=== PATIENT | male | born 1935 | race Caucasian/White ===

== ENCOUNTER → 2022-09-20 | Outpatient (REF) | payer MEDICARE, SELFPAY ==
[2022-09-20 10:03] LABS: Absolute Lymphocyte Count 1.46 X10^3/uL (0.83-4.51); Absolute Neutrophil Count 3.1 X10^3/uL (2.0-7.7); Basophil# 0.01 X10^3/uL; Basophil% 0.2 % (0-1); Eosinophil# 0.24 X10^3/uL; Eosinophils% 4.5 % (0-5); Hematocrit 34.9 % (40-54); Hemoglobin 11.5 g/dL (13.0-16.5); Lymphocyte # 1.46 X10^3/ul (0.83-4.51); Lymphocyte % 27.6 % (19-41); Mean Corpuscular Hgb 31.8 pg (27.0-32.0); Mean Corpuscular Volume 96.4 fL (80-94); Mean Platelet Vol. 9.7 fl (6.2-12.0); Monocyte# 0.44 X10^3/uL; Monocyte% 8.3 % (0-10); NRBC Flagged by Analyzer 0 % (0-5); Neutrophil # 3.13 X10^3/uL (2.7-7.7); Neutrophil % 59.2 % (47-70); Platelet Count 105 K/mm3 (150-450); RBC Distribution Width SD 45.8 fl (35.1-43.9); Red Blood Count 3.62 M/mm3 (4.6-6.2); White Blood Count 5.3 K/mm3 (4.4-11.0)
[2022-09-20 10:29] LABS: AST(SGOT) 17 U/L (15-37); Alanine Aminotransfer ALT/SGPT 20 U/L (16-61); Albumin, Serum 3.5 g/dL (3.2-5.0); Alkaline Phosphatase 86 U/L (45-117); Bilirubin, Direct 0.15 mg/dL (0.00-0.30); Cholesterol 147 mg/dL (200); Globulin 3.1 g/dL (2.2-4.2); High Density Lipoprotein 82 mg/dL; Protein, Total 6.6 g/dL (6.4-8.2); Thyroid Stim Hormone (TSH) 0.95 uIU/mL (0.358-3.74); Triglycerides 71 mg/dL; Very Low Density Lipoprotein 14 mg/dL (5-40)
[2022-09-20 10:51] LABS: Hemoglobin A1c 5.8 % (3.8-5.6)
== END ==
PROVIDERS: Visit Provider Family Medicine
DX: D64.9 Anemia, unspecified (principal); F03.90 Unspecified dementia, unspecified severity, without behavioral disturbance, psychotic disturbance, mood disturbance, and anxiety; E11.9 Type 2 diabetes mellitus without complications; I10 Essential (primary) hypertension; E78.5 Hyperlipidemia, unspecified; E03.9 Hypothyroidism, unspecified; Z79.899 Other long term (current) drug therapy
CPT/HCPCS: 36415; 80061; 80076; 83036; 84443; 85025

== ENCOUNTER 2023-01-06 10:20 | Emergency (ER) | payer MEDICARE, SELFPAY ==
[2023-01-06 10:22] VITALS: BP 154/72; PULSE 63; RESP 18; TEMP 36.5; O2SAT 99; BMI 24.0
--- NOTE | 2023-01-06 10:34 | EKG12_ITS ---
Test Reason : CONFUSION Blood Pressure : / mmHG Vent. Rate : 058 BPM Atrial Rate : 058 BPM P-R Int : 180 ms QRS Dur : 098 ms QT Int : 458 ms P-R-T Axes : 069 034 078 degrees QTc Int : 449 ms Sinus bradycardia Low voltage QRS Borderline ECG Confirmed by DANN CHANDLER, CJ ([id number]), pictures editor BIJAN DYER ([id number]) on 01/08/2023 2:26:27 PM Referred By: Confirmed By:CJ QUIGLEY MD
--- NOTE | 2023-01-06 10:34 | RAD_ITS ---
INDICATION: SOB EXAMINATION/TECHNIQUE: X-RAY - XR Chest 1 View COMPARISON: FINDINGS: LINES/DEVICES: None. LUNGS: No consolidation, edema or effusion. No pneumothorax. MEDIASTINUM AND CARDIOVASCULAR STRUCTURES: Cardiac silhouette not enlarged. Central airways and mediastinal contour are unremarkable. BONES AND SOFT TISSUES: Unremarkable. RAD/Chest 1 View (Portable) IMPRESSION: No radiographic evidence of acute cardiopulmonary disease. Electronically Signed: Cipriano Pina MD at 11:18 EDT ,
--- NOTE | 2023-01-06 10:34 | CT_ITS ---
INDICATION: headache on Eliquis EXAMINATION: CT BRAIN - CT Head or Brain W/O Contrast Injection TECHNIQUE: Multiple axial images were obtained of the head without intravenous contrast. A radiation dose optimization technique was used for this scan. IV Contrast dosage and agent: None. RADIATION DOSAGE (If Supplied By Facility): CTDIvol = ( 44.99 ) mGy, DLP = ( 812.98 ) mGycm COMPARISON: FINDINGS: BRAIN PARENCHYMA: Moderate cortical and central atrophy, mild chronic microvascular ischemic change periventricular white matter. Moderate cerebellar atrophy. CALVARIUM, SKULL BASE, PARANASAL SINUSES AND MASTOID AIR CELLS: Clear. No discrete lytic or blastic abnormalities. ORBITS: Both globes, extraocular muscles, optic nerves and retrobulbar fat appear unremarkable. ASPECTS Score for Acute Strokes: 10 CT/Brain/Head without Contrast IMPRESSION: Moderate cortical, central and cerebellar atrophy. Mild chronic microvascular ischemic change. Electronically Signed: Cipriano Pina MD at 11:55 EDT ,
--- NOTE | 2023-01-06 10:35 | EX.ED.DYSGE1 ---
HPI History of Present Illness Chief Complaint: Confusion Informant: patient Narrative Narrative: It sounds like patient was sent in for confusion from nursing facility. He arrives by EMS. Patient states that one of his daughters told him he should come in and get checked out. He states his daughters take good care of him and help him so he believes them and he came in. But the patient states he feels the same as he does every other day. He states he is not at all short of breath. He has no chest pain. No change in urine output or burning. No nausea vomiting diarrhea. No abdominal pain. I asked him about his shakes since he states he has shakes all the time. They never go away. But he has not had rigors or fever. The only positive finding I can get on review of systems as he had a little bit of discomfort at the corner of his left jaw when he was chewing about 3 days ago. But he denied any other symptoms with that including no dyspnea chest pain weakness. He states it does not hurt now. [facility] Medical History Constipation Depression Hyperlipidemia LDL goal <130 Hypertension Hypothyroidism Insomnia Pulmonary embolism Vitamin B12 deficiency (non anemic) Vitamin D deficiency Home Medications apixaban 5 mg tablet (Eliquis) 5 mg PO BID 05/24/18 [History Last Taken Unknown] cholecalciferol (vitamin D3) 25 mcg (1,000 unit) capsule 1,000 unit PO DAILY 05/24/18 [History Last Taken Unknown] docusate sodium 100 mg capsule (Colace) 100 mg PO DAILY 05/24/18 [History Last Taken Unknown] folic acid 1 mg tablet 1 mg PO DAILY 05/24/18 [History Last Taken Unknown] levothyroxine 125 mcg tablet 125 mcg PO DAILY 05/24/18 [History Last Taken Unknown] lisinopril 5 mg tablet 5 mg PO DAILY 05/24/18 [History Last Taken Unknown] melatonin 3 mg tablet 6 mg PO HS PRN 05/24/18 [History Last Taken Unknown] multivitamin 1 cap PO DAILY 05/24/18 [History Last Taken Unknown] niacin 1,000 mg tablet,extended release 24 hr 2,000 mg PO QHS 05/24/18 [History Last Taken Unknown] omega-3 fatty acids 1,000 mg capsule 4 mg PO DAILY 05/24/18 [History Last Taken Unknown] sertraline 50 mg tablet 50 mg PO DAILY 05/24/18 [History Last Taken Unknown] simvastatin 20 mg tablet 20 mg PO QHS 05/24/18 [History Last Taken Unknown] Allergy/AdvReac Type Severity Reaction Status Date / Time Sulfa (Sulfonamide AdvReac Severe acted crazy Verified 05/22/18 15:32 Antibiotics) Social History Smoking Status: Never smoker ROS ROS ED ROS Narrative A complete review of systems was performed and is negative except as documented in the history of present illness. Some specific details below. Constitutional: No recent fevers or chills. He has shakes but no fevers. EYE: No discharge, visual complaints, or pain. ENT: No difficulty swallowing. No swelling. He had pain near his left TMJ a few days ago but does not hurt now. No reflux symptoms. CV: No chest pain or palpitations. Respiratory: He denies any pulmonary symptoms including cough or shortness of breath. Evidently people at the assisted thought he looked short of breath though. GI: No abdominal pain. No nausea vomiting diarrhea. No blood in stool. : No frequency dysuria or hematuria. Denies a change in amount of urination but does admit that he may not have been drinking as much recently and is thirsty. Musculoskeletal: No recent trauma. No pains. No swelling. Skin: No rash. Nondiaphoretic. Neuro: No weakness or numbness. Endocrine: No polyuria or polydipsia. EXAM Physical Exam Narrative Exam Narrative: CONSTITUTIONAL: Patient is nontoxic in appearance. The patient looks comfortable. Work of breathing looks normal. HEENT: No notable trauma. Mucous membranes moist. No sinus tenderness. No indication of pain with swallowing. He has multiple old fillings but none of these look infected or inflamed. Overall his exam including the left TMJ and angle of the left mandible is all very normal. EYES: No conjunctival injection. No proptosis. Pupils are bilaterally about 1 mm. NECK:No JVD. No stridor. CARDIOVASCULAR: Regular rate. Regular rhythm. No notable murmur. No JVD. Note that patient has a tremor in hearing his cardiac sounds is a little bit difficult because of the shaking. RESPIRATORY: No respiratory distress. Breathing is unlabored. No wheezes. No rhonchi. No rales. No pain with a deep breath. No chest wall tenderness. His saturations are 99 to 100% on room air showing no hypoxia at all. He takes good deep breaths. GASTROINTESTINAL: Not distended. Bowel sounds are normal. No tenderness. No guarding. No rebound. No palpable mass. No bruit is heard. GENITOURINARY: No tenderness over the bladder. No CVA tenderness. MUSCULOSKELETAL: Atraumatic. No peripheral edema. NEUROLOGICAL: Patient is alert and appropriate. No focal deficit noted. He knows he is in the emergency department. He knows his name the year president [employer] and even has an opinion regarding the president. He has a sense of humor and is very interactive. He is a bit hard of hearing but he seems fully alert. SKIN: No noted rashes. No diaphoresis. PSYCHIATRIC: Patient is calm. Mood is appropriate. Const Vital Signs: 01/06/23 10:22 Temperature 97.7 F L Temperature Source Temporal Pulse Rate 63 Respiratory Rate 18 Blood Pressure 154/72 H Blood Pressure Mean 99 Pulse Ox 99 Oxygen Delivery Method Room Air MDM MDM MDM Narrative Medical decision making narrative: My independent interpretation of the patient's single view AP chest x-ray shows no acute processes and this is consistent with final reading. My independent interpretation of the patient's CT of the head shows no sign of acute bleeding. There is atrophy. Final reading is pending. Patient CBC shows minimal anemia and minimal thrombocytopenia. White counts normal. Patient's lites are normal other than minimal elevations of the glucose and creatinine. He may have some component of dehydration and is given fluids. Patient's urinalysis is not consist in with an infection. There is 0-5 white cells no bacteria no nitrites clear urine and only 25 leukocyte Estrace. He also has no symptoms of UTI. I rechecked the patient. He is the same as he was. His vitals are normal. He feels fine. I do not see a reason to admit him at this point. We looked at his mouth again. I am not getting any dental tenderness. He clearly points right to the TMJ as the area that was sore. But is not inflamed or red at this time. Its not hurting him now. I do not think this requires specific treatment at this time. Final reading is CT shows no acute process Lab Data Attestation: I reviewed the patient's lab results. Labs: Laboratory Results - last 24 hr 01/06/23 01/06/23 10:56 11:25 WBC 5.2 RBC 3.82 L Hgb 11.6 L Hct 35.9 L MCV 94.0 MCH 30.4 MCHC 32.3 RDW Std Deviation 43.3 RDW Coeff of Zev 12.6 Plt Count 125 L MPV 9.3 Immature Gran % (Auto) 0.400 Neut % (Auto) 52.6 Lymph % (Auto) 32.8 [place] % (Auto) 10.0 Eos % (Auto) 4.0 Baso % (Auto) 0.2 Absolute Neuts (auto) 2.8 Absolute Lymphs (auto) 1.71 Nucleated RBC % 0 Sodium 142 Potassium 4.2 Chloride 108 H Carbon Dioxide 29.0 Anion Gap 5 BUN 20 H Creatinine 1.39 H Estim Creat Clear Calc 36.22 Est GFR (MDRD) Af Amer 62 Est GFR (MDRD) Non-Af 51 L BUN/Creatinine Ratio 14.4 Glucose 121 H Calcium 9.3 Urine Color Yellow Urine Clarity Clear Urine pH 7.0 Ur Specific Wallace 1.010 Urine Protein 15 H Urine Glucose (UA) Normal Urine Ketones Negative Urine Occult Blood Negative Urine Nitrite Negative Urine Bilirubin Negative Urine Urobilinogen Normal Ur Leukocyte Esterase 25 H Urine RBC 0 SEEN Urine WBC 0-5 SEEN Ur Squamous Epith Cells 0 SEEN Calcium Oxalate Crystal 1+ Amorphous Sediment 2+ Urine Bacteria 0 SEEN Urine Mucus 0 SEEN Radiography Diagnostic Testing: Clinical Impression(s) from Imaging Studies Brain CT 01/06/23 10:34 IMPRESSION: Moderate cortical, central and cerebellar atrophy. Mild chronic microvascular ischemic change. Electronically Signed: Cipriano Pina MD at 11:55 EDT , Chest X-Ray 01/06/23 10:34 IMPRESSION: No radiographic evidence of acute cardiopulmonary disease. Electronically Signed: Cipriano Pina MD at 11:18 EDT , EKG Initial EKG: Comments: My independent interpretation of the patient's EKG shows sinus rhythm with slightly bradycardic rate at 58. No ectopy. No acute ST elevation or depression. MD interval, QRS duration and QTc are normal. The patient does have some rhythmic baseline variation that can appear to be atrial flutter. But clinically this is not flutter. This is his tremor. 1 can watch the monitor and clearly see sinus. Discharge Plan Triage Chief Complaint: Confusion Other Complaint: Alt LOC ED Provider: Corey Valdovinos Dx/Rx/DC Orders Clinical Impression: History of confusion, Tremor, Mild dehydration Instructions: ED Dehydration (Adult) Prescriptions: No Action Eliquis 5 mg tablet 5 mg PO BID sertraline 50 mg tablet 50 mg PO DAILY simvastatin 20 mg tablet 20 mg PO QHS levothyroxine 125 mcg tablet 125 mcg PO DAILY lisinopril 5 mg tablet 5 mg PO DAILY folic acid 1 mg tablet 1 mg PO DAILY multivitamin capsule capsule 1 cap PO DAILY docusate sodium [Colace] 100 mg capsule 100 mg PO DAILY niacin 1,000 mg tablet extended release 24 hr 2,000 mg PO QHS cholecalciferol (vitamin D3) 1,000 unit capsule 1,000 unit capsule 1,000 unit PO DAILY melatonin 3 mg tablet 6 mg PO HS PRN omega-3 fatty acids 1,000 mg capsule 4 mg PO DAILY Primary Care Provider: Care Physician,No Primary Referrals: Care Physician,No Primary [Primary Care Provider] - Activity Restrictions/Additional Instructions: Follow-up with your doctor as scheduled. Disposition Disposition: Home, Self Care
--- NOTE | 2023-01-06 10:42 | NURSING ---
NO OLD EKGS
[2023-01-06 11:07] LABS: Absolute Lymphocyte Count 1.71 X10^3/uL (0.83-4.51); Absolute Neutrophil Count 2.8 X10^3/uL (2.0-7.7); Basophil# 0.01 X10^3/uL; Basophil% 0.2 % (0-1); Eosinophil# 0.21 X10^3/uL; Hematocrit 35.9 % (40-54); Hemoglobin 11.6 g/dL (13.0-16.5); Lymphocyte # 1.71 X10^3/ul (0.83-4.51); Lymphocyte % 32.8 % (19-41); Mean Corp Hgb Conc 32.3 g/dL (32-36); Mean Corpuscular Hgb 30.4 pg (27.0-32.0); Mean Platelet Vol. 9.3 fl (6.2-12.0); Monocyte# 0.52 X10^3/uL; NRBC Flagged by Analyzer 0 % (0-5); Neutrophil # 2.75 X10^3/uL (2.7-7.7); Neutrophil % 52.6 % (47-70); Platelet Count 125 K/mm3 (150-450); RBC Distribution Width CV 12.6 % (11.6-14.6); RBC Distribution Width SD 43.3 fl (35.1-43.9); Red Blood Count 3.82 M/mm3 (4.6-6.2); White Blood Count 5.2 K/mm3 (4.4-11.0)
[2023-01-06 11:14] LABS: Anion Gap 5 (5-15); BUN 20 mg/dL (7-18); BUN/Creat Ratio 14.4 RATIO (10-20); Calcium,Total 9.3 mg/dL (8.5-10.1); Chloride 108 mmol/L (98-107); Creatinine, Serum 1.39 mg/dL (0.70-1.30); EST Glomerular Filtration Rate 51 mL/min (>60); Est Glom Filt Rate - Afr Amer 62 mL/min (>60); Estimated Creatinine Clearance 36.22 ml/min; Glucose 121 mg/dL (74-106); Potassium 4.2 mmol/L (3.5-5.1); Sodium Level 142 mmol/L (136-145)
[2023-01-06] MEDS: 0.9% Normal Saline (500mL Bag) 500 ML 1000 ML IV (11:21)
[2023-01-06 11:30] LABS: Bacteria 0 SEEN /hpf (None Seen); Mucous, Urine 0 SEEN /hpf (<or=2+); Red Blood Cells-Urine 0 SEEN /hpf (0-5); Squamous Epithelial Cells - UA 0 SEEN /hpf (0-5)
[2023-01-06 11:33] LABS: Color, Urine Yellow (Yellow); Glucose, Dipstick Normal (Normal); Ketone-Dipstick Negative (Negative); Leukocyte Esterase-Dipstick 25 /ul (Negative); Nitrite-Dipstick Negative (Negative); Occult Blood-Urine Negative /ul (Negative); Protein-Dipstick 15 mg/dl (Negative); Urine Bilirubin Dipstick Negative (Negative); Urine Clarity Clear (Clear); Urine Urobilinogen Normal (Normal)
[2023-01-06 12:01] LABS: Amorphous Sediment 2+; Calcium Oxalate Crystals Ur 1+ /hpf (<or=2+); White Blood Cells 0-5 SEEN /hpf (0-5)
[2023-01-06 13:25] VITALS: BP 116/69; PULSE 53; RESP 16; O2SAT 97
== END 2023-01-06 13:48 | disposition home or self-care (01) ==
PROVIDERS: Emergency Provider Emergency Medicine; Visit Provider Emergency Medicine
DX: R25.1 Tremor, unspecified (principal); E86.0 Dehydration; Z86.711 Personal history of pulmonary embolism
CPT/HCPCS: 70450; 71045; 80048; 81001; 85025; 87428; 93005; 96360; 99285; J7040

== ENCOUNTER → 2023-01-22 | Outpatient (REF) | payer MEDICARE, SELFPAY ==
[2023-01-22 08:07] LABS: Bacteria 0 SEEN /hpf (None Seen); Mucous, Urine 0 SEEN /hpf (<or=2+); Red Blood Cells-Urine 0 SEEN /hpf (0-5); Squamous Epithelial Cells - UA 0 SEEN /hpf (0-5); White Blood Cells 0 SEEN /hpf (0-5)
[2023-01-22 08:23] LABS: Color, Urine Yellow (Yellow); Glucose, Dipstick Normal (Normal); Ketone-Dipstick Negative (Negative); Leukocyte Esterase-Dipstick Negative /ul (Negative); Nitrite-Dipstick Negative (Negative); Occult Blood-Urine Negative /ul (Negative); Protein-Dipstick Negative (Negative); Specific Gravity, Urine 1.005 (1.002-1.030); Urine Bilirubin Dipstick Negative (Negative); Urine Clarity Clear (Clear); Urine Urobilinogen Normal (Normal)
[2023-01-22 08:35] LABS: Hematocrit 35.9 % (40-54); Hemoglobin 11.3 g/dL (13.0-16.5); Mean Corp Hgb Conc 31.5 g/dL (32-36); Mean Corpuscular Hgb 30.6 pg (27.0-32.0); Mean Corpuscular Volume 97.3 fL (80-94); Mean Platelet Vol. 9.7 fl (6.2-12.0); Platelet Count 124 K/mm3 (150-450); RBC Distribution Width CV 13.1 % (11.6-14.6); RBC Distribution Width SD 45.9 fl (35.1-43.9); Red Blood Count 3.69 M/mm3 (4.6-6.2); White Blood Count 5.5 K/mm3 (4.4-11.0)
[2023-01-22 08:47] LABS: ALB/GLOB Ratio 1.2 RATIO (0.9-2.4); AST(SGOT) 21 U/L (15-37); Alanine Aminotransfer ALT/SGPT 22 U/L (16-61); Albumin, Serum 3.7 g/dL (3.2-5.0); Alkaline Phosphatase 84 U/L (45-117); Anion Gap 5 (5-15); BUN 22 mg/dL (7-18); BUN/Creat Ratio 15.4 RATIO (10-20); Calcium,Total 9.2 mg/dL (8.5-10.1); Chloride 108 mmol/L (98-107); Creatinine, Serum 1.43 mg/dL (0.70-1.30); EST Glomerular Filtration Rate 50 mL/min (>60); Est Glom Filt Rate - Afr Amer 60 mL/min (>60); Globulin 3.2 g/dL (2.2-4.2); Glucose 102 mg/dL (74-106); Potassium 3.8 mmol/L (3.5-5.1); Protein, Total 6.9 g/dL (6.4-8.2); Sodium Level 141 mmol/L (136-145)
[2023-01-22 10:18] LABS: Hemoglobin A1c 5.5 % (3.8-5.6)
== END ==
LOC: OLS.BROOKB 05:00
PROVIDERS: Visit Provider Family Medicine
DX: R41.82 Altered mental status, unspecified (principal); E11.9 Type 2 diabetes mellitus without complications; R53.83 Other fatigue
CPT/HCPCS: 36415; 80053; 81001; 83036; 85027; 87086; 87088

== ENCOUNTER → 2023-03-20 | Outpatient (REF) | payer MEDICARE, SELFPAY ==
[2023-03-20 08:06] LABS: Hematocrit 35.3 % (40-54); Hemoglobin 11.7 g/dL (13.0-16.5); Mean Corp Hgb Conc 33.1 g/dL (32-36); Mean Corpuscular Hgb 30.3 pg (27.0-32.0); Mean Corpuscular Volume 91.5 fL (80-94); Mean Platelet Vol. 9.5 fl (6.2-12.0); Platelet Count 144 K/mm3 (150-450); RBC Distribution Width CV 12.9 % (11.6-14.6); RBC Distribution Width SD 42.6 fl (35.1-43.9); Red Blood Count 3.86 M/mm3 (4.6-6.2)
[2023-03-20 09:03] LABS: Hemoglobin A1c 5.8 % (3.8-5.6)
== END ==
LOC: OLS.BROOKB 05:00
PROVIDERS: Visit Provider Family Medicine
DX: E11.9 Type 2 diabetes mellitus without complications (principal); E61.1 Iron deficiency; I10 Essential (primary) hypertension
CPT/HCPCS: 36415; 83036; 85027

== ENCOUNTER → 2023-03-20 | Outpatient (REF) | payer MEDICARE, SELFPAY | LOC: OLS.BROOKB 05:00 | PROVIDERS: Referring Provider Family Medicine; Visit Provider Family Medicine | DX: I10 Essential (primary) hypertension (principal); E78.5 Hyperlipidemia, unspecified; E03.9 Hypothyroidism, unspecified; Z79.899 Other long term (current) drug therapy | CPT/HCPCS: 36415; 83036; 85027 ==